=== PATIENT | female | born 1990 | race Caucasian/White ===

== ENCOUNTER 2017-03-18 18:39 | Emergency (ER) | payer SELFPAY ==
[2017-03-18 18:46] VITALS: BP 137/91; PULSE 107; RESP 19; TEMP 98.1; O2SAT 99
--- NOTE | 2017-03-18 19:27 | C.PDOC ---
History Of Present Illness 26 year old female presents to the ED c/o left hand pain mainly to the 2nd and 3rd fingers. Patient reports she tripped and fell and while trying to catch her fall struck her left hand and fingers on ledge. Patient denies LOC, headache, head injury, weakness, numbness. Time Seen by Provider: 03/18/17 19:12 Chief Complaint (Nursing): Upper Extremity Problem/Injury History Per: Patient History/Exam Limitations: no limitations Onset/Duration Of Symptoms: Hrs Current Symptoms Are (Timing): Still Present Quality: "Pain" Recent travel outside of the [place] States: No Additional History Per: Patient Past Medical History Reviewed: Historical Data, Nursing Documentation, Vital Signs Vital Signs: Last Vital Signs Temp 98.1 F 03/18/17 18:43 Pulse 107 H 03/18/17 18:43 Resp 19 03/18/17 18:43 BP 137/91 H 03/18/17 18:43 Pulse Ox 99 03/18/17 20:58 - Medical History PMH: No Chronic Diseases Surgical History: No Surg Hx Family History: States: Unknown Family Hx - Social History Hx Tobacco Use: No Hx Alcohol Use: No Hx Substance Use: No - Immunization History Hx Tetanus Toxoid Vaccination: No Hx Influenza Vaccination: No Hx Pneumococcal Vaccination: No Review Of Systems Constitutional: Negative for: Fever, Chills Cardiovascular: Negative for: Chest Pain, Palpitations Respiratory: Negative for: Cough, Shortness of Breath Gastrointestinal: Negative for: Nausea, Vomiting Musculoskeletal: Positive for: Hand Pain Skin: Negative for: Rash Neurological: Negative for: Weakness, Numbness, Headache Physical Exam - Physical Exam Appears: Non-toxic, No Acute Distress Skin: Normal Color, Warm, Dry Head: Atraumatic, Normacephalic Eye(s): bilateral: Normal Inspection Nose: No Discharge Neck: Normal ROM Chest: Symmetrical Extremity: Normal ROM (right hand, right wrist), Tenderness (non focal tenderness to palm of the left hand, diffuse tenderness to 2nd and 3rd digits of left hand), Capillary Refill (< 2 seconds), Other (superficial abrasion base of 2nd digit) Pulses: Left Radial: Normal, Right Radial: Normal Neurological/Psych: Oriented x3, Normal Speech Gait: Steady ED Course And Treatment O2 Sat by Pulse Oximetry: 99 (On RA) Pulse Ox Interpretation: Normal - Other Rad Left hand X-Ray X-Ray: Interpreted by Me, Viewed By Me Interpretation: No fractures Medical Decision Making Medical Decision Making: Impression : left hand pain Plan: * Left hand X-Ray * Tylenol 650 mg PO XRay viewed by me showing no acute fracture. Cesar wrap and velcro ulnar splint was applied. Patient advised to ice, rest and take Motrin for pain. If the pain persists, patient advised to follow up with orthopedic Disposition Counseled Patient/Family Regarding: Need For Followup - Disposition Referrals: Denny Cohn MD [Staff Provider] - Disposition: HOME/ ROUTINE Disposition Time: 20:42 Condition: STABLE Additional Instructions: Your xray was normal, no fracture. Please apply ice to area 15 minutes three times a day. Take Motrin as needed for pain every 6 hours, with food to not upset stomach. Follow up with orthopedic if pain persists over one week. 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 - Scribe Statement The provider has reviewed the documentation as recorded by the Scribe Brendon Villalobos All medical record entries made by the Scribe were at my direction and personally dictated by me. I have reviewed the chart and agree that the record accurately reflects my personal performance of the history, physical exam, medical decision making, and the department course for this patient. I have also personally directed, reviewed, and agree with the discharge instructions and disposition. Procedures - Orthopedic Splinting/Casting Injury #1 Side: right Upper Extremity Injury Location: hand Upper Extremity Immobilizer: volar splint (velcro, cesar bandage 2")
--- NOTE | 2017-03-19 07:25 | RAD ---
Left hand three views History: Fall. Comparison: None available. Findings: No evidence of acute displaced fracture or dislocation. Joint spaces appear preserved. Impression: Negative acute. If pain persists, consider MRI.
== END 2017-03-18 21:02 | disposition home or self-care (01) ==
LOC: C.ER 18:39
DX: S60.222A Contusion of left hand, initial encounter (principal); W01.198A Fall on same level from slipping, tripping and stumbling with subsequent striking against other object, initial encounter

== ENCOUNTER 2018-01-24 16:35 | Emergency (ER) | payer SELFPAY ==
[2018-01-24 16:55] VITALS: BP 142/91; PULSE 91; RESP 18; TEMP 99.2; O2SAT 100
--- NOTE | 2018-01-24 17:30 | C.PDOC ---
History Of Present Illness 27-year-old female presents to the ED complaining of right arm pain, mostly at the elbow, for the past 4 days. Patient describes aching pain which worsens when bending the elbow or lifting objects. She admits to recent weight lifting, and is unsure if she strained it. Denies any direct trauma or fall. No numbness, weakness, or tingling. Patient took Tylenol once without relief. Time Seen by Provider: 01/24/18 17:07 Chief Complaint (Nursing): Upper Extremity Problem/Injury History Per: Patient History/Exam Limitations: no limitations Onset/Duration Of Symptoms: Days (x4) Current Symptoms Are (Timing): Still Present Quality: Aching Exacerbating Factor(s): Movement Past Medical History Reviewed: Historical Data, Nursing Documentation, Vital Signs Vital Signs: Last Vital Signs Temp 99.2 F 01/24/18 16:52 Pulse 91 H 01/24/18 16:52 Resp 18 01/24/18 16:52 BP 142/91 H 01/24/18 16:52 Pulse Ox 100 01/24/18 16:52 - Medical History PMH: No Chronic Diseases Surgical History: No Surg Hx Family History: States: Unknown Family Hx - Social History Hx Tobacco Use: No Hx Alcohol Use: No Hx Substance Use: No - Immunization History Hx Tetanus Toxoid Vaccination: No Hx Influenza Vaccination: No Hx Pneumococcal Vaccination: No Review Of Systems Cardiovascular: Negative for: Chest Pain Respiratory: Negative for: Shortness of Breath Musculoskeletal: Positive for: Arm Pain (right arm/elbow pain) Skin: Negative for: Rash, Lesions Neurological: Negative for: Weakness, Numbness, Incoordination Physical Exam - Physical Exam Appears: Well, Non-toxic, No Acute Distress Skin: Warm, Dry, No Rash Head: Atraumatic, Normacephalic Eye(s): bilateral: Normal Inspection Neck: Normal ROM Chest: Symmetrical Extremity: Normal ROM (with + pain on pronation and supination of the right arm, and with flexion of the right elbow), No Tenderness (to the elbow, wrist, or hand), No Deformity, No Swelling Pulses: Left Radial: Normal, Right Radial: Normal Neurological/Psych: Oriented x3, Normal Speech ED Course And Treatment O2 Sat by Pulse Oximetry: 100 (RA) Pulse Ox Interpretation: Normal Medical Decision Making Medical Decision Making: Impression: Elbow pain, non-traumatic Plan: * Elbow xray at patient request * Motrin Progress: Xray reviewed and shows no acute fracture or swelling Patient informed xray was negative. Arm sling applied by CP. Patient advised to apply ice and take medicine as needed Disposition Counseled Patient/Family Regarding: Studies Performed, Diagnosis, Need For Followup, Rx Given - Disposition Referrals: Malia Randall MD [Staff Provider] - Disposition: HOME/ ROUTINE Disposition Time: 17:27 Condition: STABLE Additional Instructions: Your xray was normal, no fracture. Please apply ice to area 15 minutes three times a day. Take Motrin as needed for pain every 6 hours, with food to not upset stomach. Follow up with orthopedic if pain persists over one week. 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 - Scribe Statement The provider has reviewed the documentation as recorded by the Scribabner Chand All medical record entries made by the Scribe were at my direction and personally dictated by me. I have reviewed the chart and agree that the record accurately reflects my personal performance of the history, physical exam, medical decision making, and the department course for this patient. I have also personally directed, reviewed, and agree with the discharge instructions and disposition.
--- NOTE | 2018-01-24 18:47 | RAD ---
PROCEDURE: Radiographs of the right elbow. HISTORY: pain s.p lifting weights, no fall or trauma COMPARISON: No prior. FINDINGS: BONES: No acute displaced fracture. JOINTS: No dislocation. SOFT TISSUES: Unremarkable. No evidence of radiopaque foreign body. JOINT EFFUSION: No significant joint effusion. OTHER FINDINGS: None IMPRESSION: No acute displaced fracture, dislocation, or significant joint effusion identified. If symptoms persist, or if there is continued clinical concern, x-ray follow-up in 7-10 days should be considered.
== END 2018-01-24 17:44 | disposition home or self-care (01) ==
LOC: C.ER 16:35
DX: S53.401A Unspecified sprain of right elbow, initial encounter (principal); X58.XXXA Exposure to other specified factors, initial encounter; Y92.9 Unspecified place or not applicable